=== PATIENT | female | born 1995 ===

== ENCOUNTER 2019-03-05 15:37 | Inpatient (IN) | payer OTHER ==
[~2019-03-05] VITALS: Ht 152.4 cm; Wt 60.8 kg
[2019-03-26] MEDS ORDERED: PRENATABS RX T1 EACH PO (07:43)
== END 2019-03-28 17:26 | disposition home or self-care (01) | DRG 807 ==
LOC: LDR 03-26 06:09 → OB/GYN 03-26 06:09
PROVIDERS: ADMIT Obstetrics & Gynecology
PROC: 10E0XZZ Delivery of Products of Conception, External Approach (ICD-10-PCS; principal; 2019-03-26)
PROC: 0W8NXZZ Division of Female Perineum, External Approach (ICD-10-PCS; 2019-03-26)
PROC: 4A0HXFZ Measurement of Products of Conception, Cardiac Rhythm, External Approach (ICD-10-PCS; 2019-03-26)
DX: O80 Encounter for full-term uncomplicated delivery (principal); Z37.0 Single live birth; Z3A.39 39 weeks gestation of pregnancy